=== PATIENT | male | born 1955 ===

== ENCOUNTER → 2018-01-17 | Outpatient (CLI) | payer OTHER ==
[~2018-01-17] VITALS: Ht 190.5 cm; Wt 92.0 kg
[~2018-01-17] MED LIST: Isovue-300 100ml vial INJ SCH
[2018-01-17 10:38] LABS: BLOOD UREA NITROGEN 8 mg/dL (7-18); CREATININE 0.8 MG/DL (0.55-1.30)
--- NOTE | 2018-01-17 14:13 | Diagnostic Imaging Report ---
Indication: UTI. Infection. Abdominal pain Technique: Continuous helical transaxial imaging of the abdomen and pelvis was obtained from the lung bases to the pubic symphysis during intravenous contrast administration. Coronal 2-D reformats were also obtained. Study obtained in a Siemens sensation [address] Automatic Exposure Control was utilized. Total Dose length Product (DLP): [address] Dose Index Volume (CTDIvol): 17.08 x 2, 17.31 x 2, 8.11, 97.33 mGy Comparison: None Findings: Left basilar pleural thickening and mild adjacent linear scarring noted with some volume loss. There is no nephrolithiasis. There is no hydronephrosis. Kidneys enhance normally. Aorta shows mild mural calcification. Urinary bladder demonstrates mild wall thickening. Prostate is normal in size. The appendix is normal. No free fluid identified. No evidence of bowel obstruction. Adrenal glands, spleen, pancreas, liver, gallbladder appear unremarkable. Degenerative disc disease demonstrated L5-S1 with hypertrophied facets and moderate neural foraminal stenosis. IMPRESSION: Mild thickening of the wall the urinary bladder. Correlate for cystitis. No obstructive nephropathy, urinary tract stones or abscess identified. Left posterior basilar pleural and parenchymal scarring. Atherosclerotic disease Degenerative disc disease and facet arthropathy L5-S1 with moderate neural foraminal stenosis The CT scanner at [facility] is accredited by the [employer] and the scans are performed using protocols designed to limit radiation exposure to as low as reasonably achievable to attain images of sufficient resolution adequate for diagnostic evaluation.
== END | disposition home or self-care (01) ==
LOC: CAT 10:08
DX: N39.0 Urinary tract infection, site not specified (principal); R10.9 Unspecified abdominal pain; I70.90 Unspecified atherosclerosis; M51.37 Other intervertebral disc degeneration, lumbosacral region
CPT/HCPCS: 36415; 74178; 82565; 84520; Q9967